=== PATIENT | male | born 1990 | race Caucasian/White ===

== ENCOUNTER 2019-03-08 08:24 | Emergency (ER) | payer BC, OTHER ==
[2019-03-08 08:30] VITALS: BMI 34.4
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
[2019-03-08] MEDS ORDERED: Povidone Iodine Topical 10% Sol ONE (10:13)
[2019-03-08] MEDS ORDERED: Lidocaine Hydrochloride 1% 10 ML ONE (10:14)
[2019-03-08 11:35] VITALS: BP 132/75; PULSE 73; RESP 16; TEMP 97.8; O2SAT 100
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
--- NOTE | 2019-03-08 11:55 | CT ---
Date of service: 03/08/2019 PROCEDURE: CT HEAD WITHOUT CONTRAST. HISTORY: r/o bleed COMPARISON: None available. TECHNIQUE: Axial computed tomography images were obtained through the head/brain without intravenous contrast. Supplemental Coronal and Sagittal projections created and reviewed. Radiation dose: Total exam DLP = 1712.45 mGy-cm. This CT exam was performed using one or more of the following dose reduction techniques: Automated exposure control, adjustment of the mA and/or kV according to patient size, and/or use of iterative reconstruction technique. FINDINGS: HEMORRHAGE: No intracranial hemorrhage. BRAIN: No mass effect or edema. No atrophy or chronic microvascular ischemic changes. VENTRICLES: Unremarkable. No hydrocephalus. CALVARIUM: Unremarkable. PARANASAL SINUSES: No evidence of acute sinusitis. Incompletely visualized chronic disease. MASTOID AIR CELLS: Unremarkable as visualized. No inflammatory changes. OTHER FINDINGS: None. IMPRESSION: No acute intracranial abnormalities. No significant findings to account for the clinical presentation.
== END 2019-03-08 11:20 | disposition home or self-care (01) ==
LOC: H.ER 08:24
DX: S01.511A Laceration without foreign body of lip, initial encounter (principal); Y04.0XXA Assault by unarmed brawl or fight, initial encounter; Y92.89 Other specified places as the place of occurrence of the external cause
CPT/HCPCS: 12011; 70450; 70486; 96372; 99283; J1885